=== PATIENT | female | born 1990 | race Caucasian/White ===

== ENCOUNTER 2024-01-06 09:37 | Emergency (ER) | payer BC ==
[~2024-01-06] VITALS: Ht 162.6 cm; Wt 47.6 kg
[2024-01-06] MEDS ORDERED: CYCL5TAB PO (10:23)
[2024-01-06 10:50] VITALS: BP 125/78; TEMP 98.3; O2SAT 99
== END 2024-01-06 10:51 | disposition home or self-care (01) ==
LOC: ER 09:41
DX: R51.9 Headache, unspecified (principal); M54.2 Cervicalgia; V89.2XXA Person injured in unspecified motor-vehicle accident, traffic, initial encounter; Y93.89 Activity, other specified; Y92.89 Other specified places as the place of occurrence of the external cause; Y99.8 Other external cause status